=== PATIENT | male | born 1970 | race African-American/Black ===

== ENCOUNTER 2024-02-19 15:33 | Emergency (ER) | payer MEDICAID ==
[~2024-02-19] VITALS: Ht 177.8 cm; Wt 85.0 kg
[2024-02-19 15:43] VITALS: O2SAT 100
[2024-02-19] MEDS: IBUPROFEN 600MG TABLET PO ONE (16:30)
[2024-02-19] MEDS ORDERED: BO1 TP (17:27)
[2024-02-19] MEDS ORDERED: IBUP-2029 MT (17:27)
[2024-02-19 17:53] VITALS: BP 135/78; PULSE 80; RESP 18; TEMP 98.5
== END 2024-02-19 18:10 | disposition home or self-care (01) ==
LOC: ER 15:33
DX: S80.212A Abrasion, left knee, initial encounter (principal); S80.211A Abrasion, right knee, initial encounter; Y93.55 Activity, bike riding; Y93.89 Activity, other specified; Y92.89 Other specified places as the place of occurrence of the external cause; Y99.8 Other external cause status
CPT/HCPCS: 73630; 29515; 99283; Z7610